=== PATIENT | female | born 1960 | race Caucasian/White ===

== ENCOUNTER 2016-08-23 12:13 | Emergency (ER) | payer OTHER ==
[~2016-08-23] VITALS: Ht 170.2 cm; Wt 65.8 kg
[2016-08-23 12:28] VITALS: BP 139/78
--- NOTE | 2016-08-23 13:39 | NUR ---
PATIENT TO BED 5.
--- NOTE | 2016-08-23 13:40 | NUR ---
PATIENT PRESENTS TO ED WITH C/O FALL THIS MORNING WITH NO LOC. LACERATION AND SWELLING TO LEFT EYE; DENIES N/V/D; SKIN IS PINK/WARM/DRY; AAOX4 WITH EVEN AND STEADY GAIT; LUNGS CLEAR BL; HR EVEN AND REGULAR; PT DENIES ANY FEVER, CP, SOB, OR COUGH AT THIS TIME; PATIENT STATES PAIN OF 7/10 AT THIS TIME; VSS; PATIENT POSITIONED FOR COMFORT; HOB ELEVATED; BEDRAILS UP X2; BED DOWN. ER MD MADE AWARE OF PT STATUS.
[2016-08-23] MEDS ORDERED: MORPHINE SULFATE 4 MG/ML SYR IM ONE (13:55)
--- NOTE | 2016-08-23 14:50 | NUR ---
PT ASSISTED TO RESTROOM VIA WHEEL CHAIR
--- NOTE | 2016-08-23 15:21 | NUR ---
PER PT REQUEST PROVIDED WITH CRACKERS AND ORANGE JUICE
--- NOTE | 2016-08-23 15:45 | NUR ---
DR WATSON AT BEDSIDE REASSESSING AAO PT WITH FAMILY AT BEDSIDE
[2016-08-23] MEDS ORDERED: LIDOCAINE 1% 500 MG/50 ML VIAL INJ ONE (15:50)
[2016-08-23] MEDS ORDERED: LIDOCAINE 1% ED 50 ML ONE (15:52)
[2016-08-23] MEDS ORDERED: NEOMYCIN/POLYMYXIN/BACITRACIN 0.9 GM/1 PKT TP ONE (16:10)
[2016-08-23 16:20] VITALS: BP 133/71
== END 2016-08-23 16:20 | disposition home or self-care (01) ==
LOC: MED 12:13
DX: S01.112A Laceration without foreign body of left eyelid and periocular area, initial encounter (principal); F17.200 Nicotine dependence, unspecified, uncomplicated; M54.2 Cervicalgia; W19.XXXA Unspecified fall, initial encounter; Y93.89 Activity, other specified; Y92.89 Other specified places as the place of occurrence of the external cause; Y99.8 Other external cause status
CPT/HCPCS: 12011; 70450; 70486; 96372; 99284; J2001; J2270